=== PATIENT | female | born 1960 | race Two or more races ===

== ENCOUNTER 2021-05-18 16:08 | Emergency (ER) | payer OTHER ==
[~2021-05-18] VITALS: Ht 154.9 cm; Wt 106.6 kg
[2021-05-18] MEDS ORDERED: RESTASIS1 EACH (16:51)
[2021-05-18] MEDS ORDERED: DILTIAZEM 24HR180 MG (16:51)
[2021-05-18] MEDS ORDERED: CHILDREN'S ASPI81 MG (16:52)
[2021-05-18] MEDS ORDERED: [UNRECOGNIZED DRUG - OTHER] (16:52)
[2021-05-18] MEDS ORDERED: PROTONIX20 MG (16:53)
[2021-05-18] MEDS ORDERED: AMITRIPTYLINE H10 MG (16:53)
[2021-05-18] MEDS ORDERED: LIPITOR20 MG (16:53)
[2021-05-18] MEDS ORDERED: LUMIGAN2.5 M1 (16:54)
[2021-05-18] MEDS ORDERED: MEDROL2 MG (16:54)
[2021-05-18] MEDS ORDERED: OSEL75CA PO (18:58)
== END 2021-05-18 19:12 | disposition home or self-care (01) ==
LOC: ER 16:08
DX: J11.1 Influenza due to unidentified influenza virus with other respiratory manifestations (principal); B33.8 Other specified viral diseases